=== PATIENT | male | born 1945 | race Caucasian/White ===

== ENCOUNTER → 2016-10-25 07:01 | Day surgery (SDC) | payer MEDICARE ==
--- NOTE | 2016-10-16 20:31 | HP ---
ADMISSION HISTORY AND PHYSICAL: DATE OF ADMISSION: 10/25/16 ATTENDING SURGEON: Beau Calloway MD (dictated by RANDA Nolan) CHIEF COMPLAINT: Right inguinal hernia. HISTORY OF PRESENT ILLNESS: This is a 71-year-old patient who was first seen by Dr. Calloway in May of this year with relatively recent onset of right groin bulge with associated discomfort. Exam at that time by Dr. Calloway revealed an obvious right inguinal hernia bulge which was soft, reducible and minimally tender. Dr. Calloway discussed with him the indications for surgery, the risks, benefits and alternatives. In the interim, the patient was found to have severe mitral regurgitation as well as significant coronary artery disease. He underwent a 3- vessel CABG and mitral valve repair on 06/28/16 at [facility]. In addition, he required a pacemaker placement on 06/29/16 for sinus node dysfunction. He was also noted to have perioperative atrial fibrillation, though this appears to have resolved since his last pacemaker interrogation and he was recently discontinued from his warfarin therapy. The remainder of his postoperative course was uneventful and he re-presented to Dr. Calloway on 09/19/16 to again discuss a possible hernia repair. Again, the patient's anticoagulation has been discontinued other than his usual aspirin therapy. Dr. Calloway has discussed the surgery with him and he would like to proceed as scheduled with open repair right inguinal hernia with mesh. This will be done under local anesthesia with IV sedation on a Same-Day Surgery basis. The patient will continue his aspirin perioperatively. PAST MEDICAL HISTORY: 1. Coronary artery disease. 2. Mitral valve disease and sinus node dysfunction as noted above. 3. Perioperative atrial fibrillation, resolved. 4. Hyperlipidemia. 5. BPH. PAST SURGICAL HISTORY: 1. CABG with mitral valve repair and pacemaker placement, June 2016. 2. Repair, left retinal detachment. 3. Laser therapy for early right retinal detachment and bilateral cataract extraction. CURRENT MEDICATIONS: 1. Spironolactone 25 mg once daily. 2. Atorvastatin 40 mg once daily. 3. Metoprolol extended release 25 mg once daily. 4. Aspirin 81 mg once daily (the patient to continue perioperatively). DRUG ALLERGIES: AUGMENTIN (significant GI side effects with similar side effects related to an unspecified antibiotic taken approximately 1 year ago). The patient has taken clindamycin more recently without significant adverse effects. FAMILY HISTORY: Negative for anesthesia problems, bleeding or clotting disorders. SOCIAL HISTORY: The patient is . 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 He is a former smoker of one- half pack per day for approximately 50 plus years. He quit in June 2016. He drinks on an average 1 drink per day. He denies other drug use. REVIEW OF SYSTEMS: General: No recent constitutional symptoms. His weight has been stable. He has had a mildly productive cough for the past 3 weeks. Cardiovascular: As above, see separate Cardiology note. Anticoagulation has been stopped. Respiratory: Cough for the last 3 weeks. Smoking history as noted. No shortness of breath. GI: No recent problems reported. The patient undergoes colonoscopies approximately every 3 years related to past polyp removal. No interval significant history. : History of BPH. No recent changes. Endocrine: No diabetes or thyroid dysfunction. PHYSICAL EXAMINATION GENERAL: Well-nourished, well-developed male, in no acute distress. VITAL SIGNS: Height 5 feet 7 inches, weight 137 pounds by history. Other vital signs per Nursing. HEENT: Pupils equal, round and reactive. EOMs intact. No conjunctival pallor. Oropharynx: Some missing teeth. Remaining teeth in good repair. No intraoral lesions. NECK: No lymphadenopathy, thyromegaly, masses or carotid bruits. LUNGS: Clear to auscultation. No rales or wheezes. HEART: Regular. No murmur appreciated. Well-healed median sternotomy. There is a left upper anterior chest pacemaker. ABDOMEN: Soft, nontender to palpation. No palpable masses or organomegaly with the exception of the aforementioned right inguinal hernia, which I did not reexamine today. GENITALIA: Per Dr. Calloway's exam, testes normal. No hernia palpable on the left. RECTAL: Not done (done by PCP). BACK: No spinous process or CVA tenderness. EXTREMITIES: No edema. He does have one area of nontender induration in the area of his saphenous vein harvest possibly consistent with seroma, it is otherwise asymptomatic. Peripheral pulses not checked today. SKIN: Warm and dry. No suspicious rashes or lesions. NEUROLOGIC: Grossly intact. IMPRESSION: Right inguinal hernia. PLAN: Open repair right inguinal hernia with mesh. RANDA PABLO CC: Caroline Delacruz; Caroline Hawk [place]* [id number]/[facility] #: [id number] MTDD
[~2016-10-25 07:01] MED LIST: Buffered Lidocaine 1% SYR 3ML* 3 ML/SYR SYRINGE INTRADERM ONE; Buffered Lidocaine 1% SYR 3ML* 3 ML/SYR SYRINGE ONE; Bupivacaine 0.5% W/EPI SDV* 30 ML VIAL ONE; Dexamethasone IV* 4 MG/ML 1 ML (4 MG) IV SLOW PU ONE; Dexamethasone IV* 4 MG/ML 1 ML (4 MG) ONE; Famotidine IV* 10 MG/ML 2 ML (20 mg) IV ONE; Famotidine IV* 10 MG/ML 2 ML (20 mg) ONE; Lidocaine 1% INJ* 10 MG/ML 30 ML SDV ONE; Lidocaine 2% MPF* 2 ML VIAL ONE; Midazolam* 1 MG/ML 5 ML VIAL (5 MG) ONE; Ondansetron INJ* 2 MG/ML VIAL IV PRN; Ondansetron INJ* 2 MG/ML VIAL ONE; Propofol* 10 MG/ML 20 ML BTL IV PUSH ONE; ceFAZolin 2 GM PREMIX (*) 2 GM/50 ML BAG IVPB ONE; fentaNYL* 50 MCG/ML 2 ML VIAL (100 MCG VIAL) IV PRN; fentaNYL* 50 MCG/ML 2 ML VIAL (100 MCG VIAL) ONE; oxyCODONE/Acetamin 5/325 MG* TAB PO PRN
[2016-10-25 10:41] VITALS: BP 98/55
--- NOTE | 2016-10-25 11:59 | OP ---
CC: Dr. Beau Calloway; Kvng Velazquez OPERATIVE REPORT: DATE OF OPERATION: 10/25/16 DATE OF : 47 SURGEON: Beau Calloway MD RARE/ENDANGERED SPECIES SPECIALIST: RANDA Nolan ANESTHESIOLOGIST: Lisandro Wells MD ANESTHESIA: LMAC. PRE-OP DIAGNOSIS: Right inguinal hernia. POST-OP DIAGNOSIS: Right inguinal hernia. OPERATIVE PROCEDURE: Open right inguinal hernia repair with mesh. DESCRIPTION OF PROCEDURE: The patient was supine on the operative table. After adequate intravenou s sedation, compression stockings, Clifford Hugger warmer, and intravenous antibiotics, the right groin was clipped and prepped with antiseptic and draped in a sterile fashion. Local infiltrative anesthe gamal was administered. Approximately 2 to 2-1/2 inch incision was created and dissection carried down to the external oblique, which was opened in the direction of its fibers. Cord structures were enc ircled with a Abraham drain, tented upward, and indirect hernia sac was dissected free and reduced, and a cone mesh plug was placed into the internal ring, sutured with 2-0 Polysorb. A second piece o f mesh was placed over the inguinal floor, sutured at the tubercle. Tails were split, brought aroun d the cord structures, and tacked down laterally. External oblique was closed over top with 2-0 Lucas ysorb, Karime's with 3-0 Polysorb, and skin with 4-0 Surgipro followed by a sterile dressing. He to lerated the procedure well, was awakened, and brought to Recovery in good condition. There were no complications. No drains. No pathologic specimen. Sponge and instrument counts correct. Estimate d blood loss was less than 10 mL. [id number]/[facility] #: [id number]
== END | disposition home or self-care (01) ==
LOC: OR 07:01
PROVIDERS: ATTEND Surgery
DX: K40.90 Unilateral inguinal hernia, without obstruction or gangrene, not specified as recurrent (principal); I25.10 Atherosclerotic heart disease of native coronary artery without angina pectoris; I10 Essential (primary) hypertension; Z95.1 Presence of aortocoronary bypass graft; I34.1 Nonrheumatic mitral (valve) prolapse; I49.5 Sick sinus syndrome; E78.5 Hyperlipidemia, unspecified; N40.0 Benign prostatic hyperplasia without lower urinary tract symptoms; Z79.82 Long term (current) use of aspirin; Z88.0 Allergy status to penicillin; Z87.891 Personal history of nicotine dependence
CPT/HCPCS: C1781; J0690; J1100; J2250; J2405; J2704; J3010